=== PATIENT | female | born 1970 | race Caucasian/White ===

== ENCOUNTER 2024-06-08 10:21 | Outpatient (CLI) | payer OTHER ==
[2024-06-08 11:21] LABS: PH,URINE 6.5 (5.0-8.0); URINE APPEARANCE Clear; URINE BILIRRUBIN Negative (NEGATIVE); URINE BLOOD Negative; URINE COLOR Yellow; URINE GLUCOSE Negative (NEGATIVE); URINE KETONE Negative (NEGATIVE); URINE LEUKOCYTE Negative; URINE NITRATE Negative; URINE PROTEIN Negative (NEGATIVE); URINE UROBILINOGEN 0.2 E.U./dl
[2024-06-08 11:22] LABS: URINE BACTERIA 8.8 uL (0.0-1933); URINE RBC 2.4 uL (0.0-20.8)
[2024-06-08 11:26] LABS: HEMATOCRIT 37.7 % (36.0-45.00); HEMOGLOBIN 12.8 g/dL (12.0-15.00); MEAN CORPUSCULAR HEMOGLOBIN 30.5 pg (27.00-32.0); MEAN CORPUSCULAR HGB CONC 33.9 g/dl (32.0-36.0); PLATELET COUNT 184 K/uL (150-450); RED BLOOD COUNT 4.19 M/uL (4.00-6.00); RED CELL DISTRIBUTION WIDTH 12.6 % (11.5-14.5)
[2024-06-08 12:12] LABS: URINE EPITHELIAL CELLS 0.7 uL (0.0-38.8); URINE WBC 0 uL (0.0-23.2)
[2024-06-08 12:50] LABS: ALBUMIN 3.9 gm/dL (3.4-5.0); BILIRUBIN TOTAL 0.44 mg/dL (0.3-1.2); CALCIUM 8.9 mg/dL (8.5-10.1); CHOL HDL RATIO 2.6 (0-5.0); CREATININE SERUM 0.74 mg/dL (0.55-1.02); GFR 82.41; GLOBULINA 3.7 G/DL (2.4-3.5); POTASSIUM 4.23 mEq/L (3.5-5.1); T4 FREE 0.82 NG/ML (0.76-1.46); TOTAL PROTEIN 7.6 gm/dL (6.4-8.2); TSH 1.28 uIU/mL (0.358-3.74)
[2024-06-08 13:18] LABS: VITAMIN D3 25 HYDROXY 41.72 ng/ml (30-120)
[2024-06-13 07:06] LABS: hav igm Negative (Negative); hcv Non Reactive (Non Reactive); hep b c Negative (Negative); hep b s ag Negative (Negative)
[2024-06-13 21:04] LABS: chla t Negative (Negative); neiss Negative (Negative)
== END 2024-06-08 10:32 | disposition home or self-care (01) ==
LOC: LAB 10:21
PROVIDERS: ATTEND Internal Medicine
DX: N39.0 Urinary tract infection, site not specified (principal); Z13.29 Encounter for screening for other suspected endocrine disorder; Z13.0 Encounter for screening for diseases of the blood and blood-forming organs and certain disorders involving the immune mechanism; Z13.220 Encounter for screening for lipoid disorders; E04.9 Nontoxic goiter, unspecified; E55.9 Vitamin D deficiency, unspecified; Z11.3 Encounter for screening for infections with a predominantly sexual mode of transmission; Z11.4 Encounter for screening for human immunodeficiency virus [HIV]; E11.9 Type 2 diabetes mellitus without complications; E78.2 Mixed hyperlipidemia; B20 Human immunodeficiency virus [HIV] disease; B17.9 Acute viral hepatitis, unspecified; D64.9 Anemia, unspecified; Z00.00 Encounter for general adult medical examination without abnormal findings; A64 Unspecified sexually transmitted disease

== ENCOUNTER 2024-12-12 10:42 | Outpatient (CLI) | payer OTHER | END 2024-12-12 10:54 | disposition home or self-care (01) | LOC: SONOGRAMA 10:42 | DX: R92.2 Inconclusive mammogram (principal) ==

== ENCOUNTER 2024-12-12 11:25 | Outpatient (CLI) | payer OTHER ==
[2024-12-12 13:10] LABS: PH,URINE 7.5 (5.0-8.0); URINE APPEARANCE Clear; URINE BILIRRUBIN Negative (NEGATIVE); URINE BLOOD Negative; URINE COLOR Yellow; URINE GLUCOSE Negative (NEGATIVE); URINE KETONE Negative (NEGATIVE); URINE LEUKOCYTE Small; URINE NITRATE Negative; URINE PROTEIN Negative (NEGATIVE); URINE UROBILINOGEN 0.2 E.U./dl
[2024-12-12 13:14] LABS: URINE BACTERIA 138.2 uL (0.0-1933); URINE EPITHELIAL CELLS 7.7 uL (0.0-38.8); URINE RBC 5.8 uL (0.0-20.8); URINE WBC 4.2 uL (0.0-23.2)
[2024-12-12 13:26] LABS: HEMATOCRIT 38.9 % (36.0-45.00); HEMOGLOBIN 13.2 g/dL (12.0-15.00); MEAN CELL VOLUME 90.7 fL (80.00-100.00); MEAN CORPUSCULAR HEMOGLOBIN 30.8 pg (27.00-32.0); PLATELET COUNT 239 K/uL (150-450); RED BLOOD COUNT 4.29 M/uL (4.00-6.00)
[2024-12-12 14:04] LABS: ALBUMIN 3.9 gm/dL (3.4-5.0); ALKALINE PHOSPHATASE 67 U/L (50-136); ALT/SGPT 20 U/L (12-78); ANION GAP 7 (10.0-20.0); AST/SGOT 19 U/L (15-37); BILIRUBIN TOTAL 0.31 mg/dL (0.3-1.2); BILIRUBIN,CONJUGATED < 0.10 mg/dL (0.0-0.2); BILIRUBIN,UNCONJUGATED 0.21 mg/dL (0.0-0.6); BLOOD UREA NITROGEN 10 mg/dL (7-18); BUN CREA RATIO 14 (7.0-25.0); CALCIUM 8.8 mg/dL (8.5-10.1); CARBON DIOXIDE 32 mEq/L (21-32); CHLORIDE 104 mmol/L (98-107); CHOL HDL RATIO 2.4 (0-5.0); CHOLESTEROL 178 mg/dL (0-200); CREATININE SERUM 0.72 mg/dL (0.55-1.02); GFR 85.06; GLOBULINA 3.3 G/DL (2.4-3.5); GLUCOSE FASTING 85 mg/dL (65-100); HDL 75 mg/dl (40-60); LDL 89 mg/dl (0-130); OSMOLALITY SERUM 276 MOSM/KG (275-295); POTASSIUM 4.26 mEq/L (3.5-5.1); SODIUM 139 mmol/L (136-145); T4 FREE 1.01 NG/ML (0.76-1.46); TOTAL PROTEIN 7.2 gm/dL (6.4-8.2); TRIGLYCERIDES 69 mg/dL (0-150); VLDL 13 (0-39)
[2024-12-12 14:11] LABS: T3 TOTAL 1.04 ng/ml (0.846-2.02); VITAMIN D3 25 HYDROXY 35.94 ng/ml (30-120)
[2024-12-12 14:19] LABS: ob NEGATIVE (NEGATIVE)
[2024-12-14 10:08] LABS: FOLLICLE STIMULATING HORMONE 97.3 mIU/mL (.); LEUTEINIZING HORMONE 61.2 mIU/mL (.); PROGESTERONA 0.2 ng/mL (.); hav igm Negative (Negative); hcv Non Reactive (Non Reactive); hep b c Negative (Negative); hep b s ag Negative (Negative)
[2024-12-14 10:08] LABS: ESTRADIOL SERUM 9.2 pg/mL (.)
[2024-12-15 00:08] LABS: chla t Negative (Negative); neiss Negative (Negative)
== END 2024-12-12 11:26 | disposition home or self-care (01) ==
LOC: LAB 11:25
PROVIDERS: ATTEND Podiatrist
DX: E06.9 Thyroiditis, unspecified (principal); E78.5 Hyperlipidemia, unspecified; N95.1 Menopausal and female climacteric states; Z11.3 Encounter for screening for infections with a predominantly sexual mode of transmission; Z12.11 Encounter for screening for malignant neoplasm of colon; Z11.4 Encounter for screening for human immunodeficiency virus [HIV]; Z13.1 Encounter for screening for diabetes mellitus; B35.1 Tinea unguium; R74.9 Abnormal serum enzyme level, unspecified; Z79.899 Other long term (current) drug therapy